=== PATIENT | male | born 1980 | race Caucasian/White ===

== ENCOUNTER 2016-06-15 09:35 | Day surgery (SDC) | payer OTHER ==
--- NOTE | 2016-06-15 10:39 | OR ---
Anesthesia Pre Procedure Eval Date of Service: 06/15/16 Pre Procedure Evaluation: Last Vital Signs Temp 36.3 C L 06/15/16 09:45 Pulse 95 06/15/16 09:45 Resp 16 06/15/16 09:45 BP 121/71 06/15/16 09:45 Pulse Ox 99 06/15/16 09:45 DATE: 06/15/2016 TIME: 1035 INDICATIONS: Disc bulge with right sided protrusion at L4 5, low back and right radicular pain. PAST MEDICAL HISTORY: Mr. Whiteside has had a many year history of low back and right radicular pain. She does perform daily stretches and exercises which does help. He occasionally uses both prescription and nonprescription medication for treatment of pain however when the radicular pain gets particularly bad epidural injections appeared to be the most effective treatment. He has had epidural injections in the past most recent one was well over a year ago. Over the past 6 months he has had an increasing level of pain which is no longer responsive to other modalities of treatment. EXAM: Heart S1-S2 regular; lungs clear bilaterally ASSESSMENT OF MEDICAL STATUS: Appropriate candidate for [facility] PL[facility]ED PROCEDURE: Lumbar epidural steroid injection. Home Medications: HOME MEDICATIONS Naproxen Sodium [Anaprox DS] 550 mg PO Q12H 04/10/15 [Last Taken Unknown] oxyCODONE HCL/ACETAMINOPHEN [Percocet 5 MG/325 MG] 1 - 2 tab PO Q4H PRN [Last Taken Unknown]
[2016-06-15] MEDS ORDERED: LIDOCAINE HCL/PF 5 ML VIAL IJ ONE (11:04)
[2016-06-15] MEDS ORDERED: DEXAMETHASONE SOD PHOSPHATE 10 MG/ML VIAL IJ ONE (11:04)
[2016-06-15] MEDS ORDERED: IOPAMIDOL 20 ML VIAL IJ ONE (11:04)
--- NOTE | 2016-06-15 11:13 | OR ---
Anesthesia Procedure Note - Anesthesia Procedure Note Date of Service: 06/15/16 Narrative: Vital Signs - Last Taken Temp 36.3 C L 06/15/16 09:45 Pulse 95 06/15/16 09:45 Resp 16 06/15/16 09:45 BP 121/71 06/15/16 09:45 Pulse Ox 99 06/15/16 09:45 06/15/16 11:10 ANESTHESIA PROCEDURE NOTE Date of Procedure: 06/15/2016 Time of procedure: 1058. Performed by: BANDAR Ferguson CRNAP, MSN Dynamometer Tester Engine: Mary Miranda RN. Preprocedure diagnosis: Disc bulge with right-sided protrusion L4 5, low back and right radicular pain. Post procedure diagnosis: Same. Procedure: Epidural Steroid Injection L4 5 right. Indications: Low back and right radicular pain. Findings: See below. Details of the procedure: After the MRI report and films were reviewed, the patient was interviewed where risks and the procedure were explained. The patient was then brought to OR 4 and was placed in the prone position. The back was prepped with DuraPrep and draped in a sterile fashion. The lumbar area was identified under fluoroscopy and the L4 5 right space was localized with 1% lidocaine solution. The epidural space was identified using loss of resistance technique using a #20-gauge Touhy needle. 1 mL of Isovue was injected while the C-arm was positioned in the lateral orientation. The C-arm was then readjusted to an AP view and Isovue 200 1 milliliters was injected demonstrating a spread at the affected area and a right pressure parasthesia was experienced. Dexamethasone 10mg and lidocaine 1% 5 mL was injected, stylette was replaced and the epidural needle removed. A Band-Aid was then applied to the injection site, patient was placed in a supine position for 5 minutes then returned to ASU with good relief of pain, from a 4/10 to 0/10. EBL: None. Energy: 5.3 Seconds, 1.51 mGy Fluids: N/A. Specimen: N/A. Post procedure condition: The patient tolerated the procedure well. No complications were noted. Thank you for this consultation. Adan Lewis CRNA, MSN, [employer] OPERATOR
[2016-06-15 11:45] VITALS: BP 108/58
== END 2016-06-15 09:36 | disposition home or self-care (01) ==
LOC: AMB 09:35
PROVIDERS: ATTEND Allergy & Immunology
PROC: 3E0S3BZ Introduction of Anesthetic Agent into Epidural Space, Percutaneous Approach (ICD-10-PCS; 2016-06-15)
PROC: 3E0S33Z Introduction of Anti-inflammatory into Epidural Space, Percutaneous Approach (ICD-10-PCS; principal; 2016-06-15 08:00)
DX: M51.26 Other intervertebral disc displacement, lumbar region (principal)